=== PATIENT | female | born 1985 | race African-American/Black ===

== ENCOUNTER 2023-12-30 20:04 | Emergency (ER) | payer OTHER ==
[~2023-12-30] VITALS: Ht 167.6 cm; Wt 77.0 kg
[2023-12-30 20:12] VITALS: TEMP 98.4; O2SAT 96
[2023-12-30] MEDS: SODIUM CHLORIDE 0.9% 1,000 ML IV ONE (21:03)
[2023-12-30] MEDS: KETOROLAC 30MG/ML VIAL IV STA (21:03)
[2023-12-30 21:21] LABS: BASOPHILS % 0.3 % (0.0-2.0); EOSINOPHILS % 2.6 % (0.0-5.0); HEMATOCRIT. 25.7 % (36.0-48.0); HEMOGLOBIN. 8.6 g/dL (12.0-16.0); LYMPHOCYTES % 22.7 % (20.0-50.0); MEAN CORPUSCULAR HEMOGLOBIN 31.6 pg (28.0-32.0); MEAN CORPUSCULAR HGB CONC 33.6 g/dL (31.0-37.0); MEAN PLATELET VOLUME 7.8 fl (7.4-10.4); MONOCYTES % 7.9 % (2.0-8.0); NEUTROPHILS % 66.5 % (40.0-76.0); PLATELET 330 x1000/uL (130-400); RED BLOOD CELL COUNT 2.74 mill/uL (4.2-5.4); RED CELL DISTRIBUTION WIDTH 12.7 % (11.6-14.6); WHITE BLOOD COUNT 11.1 x1000/uL (4.5-11.0)
[2023-12-30 21:28] LABS: CARBON DIOXIDE 26 mEq/L (21-32); CHLORIDE 109 mEq/L (98-107); POTASSIUM 3.7 mEq/L (3.5-5.1); SODIUM 141 mEq/L (136-145)
[2023-12-30 21:34] LABS: CREATININE 1.1 mg/dL (0.6-1.0); GLUCOSE 104 mg/dL (70-105); UREA NITROGEN BLOOD 9 mg/dL (9-23)
[2023-12-30 21:37] LABS: PROTHROMBIN TIME 10.9 sec (9.6-11.0)
[2023-12-30 21:40] LABS: TROPONIN I HIGH SENSITIVITY < 4 ng/L (3.0-34)
[2023-12-30 21:49] LABS: HCG SCREEN NEGATIVE
[2023-12-30 21:53] LABS: CALCIUM 8.9 mg/dL (8.7-10.4)
[2023-12-30 21:57] LABS: CLARITY URINE CLEAR (CLEAR); COLOR URINE YELLOW (YELLOW); GLUCOSE URINE NEGATIVE (NEGATIVE); KETONES URINE NEGATIVE (NEGATIVE); LEUKOCYTE ESTERASE URINE NEGATIVE (NEGATIVE); NITRITE URINE NEGATIVE (NEGATIVE); OCCULT BLOOD URINE TRACE (NEGATIVE); PROTEIN URINE NEGATIVE (NEGATIVE); SPECIFIC GRAVITY URINE 1.011 (1.005-1.030); UROBILINOGEN URINE 0.2 E.U./dL (0.2-1.0)
[2023-12-30 22:43] LABS: BACTERIA URINE NONE SEEN; RBC URINE 0-2 /hpf (0-2); SQUAMOUS EPITHELIAL CELL URINE FEW /lpf (RARE/1+); WBC URINE NONE SEEN /hpf (0-2)
[2023-12-31 00:31] LABS: TROPONIN I HIGH SENSITIVITY < 4 ng/L (3.0-34)
[2023-12-31] MEDS ORDERED: METR-167 MT (00:41)
[2023-12-31] MEDS ORDERED: DICY-18 MT (00:43)
[2023-12-31 01:00] VITALS: BP 131/87; PULSE 86; RESP 17; O2SAT 100
== END 2023-12-31 01:09 | disposition home or self-care (01) ==
LOC: ER 20:04
DX: R55 Syncope and collapse (principal); K52.9 Noninfective gastroenteritis and colitis, unspecified; N13.2 Hydronephrosis with renal and ureteral calculous obstruction; I10 Essential (primary) hypertension; E11.9 Type 2 diabetes mellitus without complications; D64.9 Anemia, unspecified
CPT/HCPCS: 80048; 81003; 84703; 85025; 85610; 84484; 36415; 71045; 73630; 74176; 96361; 96374; 99285; J1885; J7030; Z7610 ×3